=== PATIENT | female | born 1995 | race Caucasian/White ===

== ENCOUNTER 2022-11-04 17:23 | Observation (INO) | payer OTHER, SELFPAY ==
[2022-11-04] VITALS (19 sets, daily range): BP systolic 120–137; BP diastolic 58–88; PULSE 98–214; RESP 16–20; TEMP 36.3–37; O2SAT 94–100
--- NOTE | ~2022-11-04 | US_ITS ---
Renal-Bladder ultrasound Clinical History: Left flank pain Technique: Real-time sonographic imaging of the kidneys and urinary bladder was performed. Findings: The right kidney measures 11.9 cm in length and the left kidney measures 13.3 cm. There is no hydronephrosis or renal calculus identified. Renal cortical echogenicity is within normal limits. No renal mass lesion is identified. The urinary bladder is not visualized. Impression: Unremarkable ultrasound of the kidneys. Reviewed, dictated and finalized at location . Impression: Unremarkable ultrasound of the kidneys.
--- NOTE | 2022-11-04 17:23 | OBADM ---
This patient, Nayeli Victoria, admitted to the OB room [facility] for observation. Patient/family oriented to hospital policies and general routines including ID bracelet, bed and alarms, visiting hours, pain management, procedures, bathroom and other care routines, personal items, smoking policy, room service/diet, and visiting hours. Patient/Family are encouraged to report perceived risks to care and to ask questions if they do not understand what they are told or what they should do.
--- NOTE | 2022-11-04 18:08 | PC.NURSE ---
Dr. Davila informed of this walk in pt at 29 6/7 wks who states she has had care with [facility] and plans to deliver at [facility] in [place]. Pt states she started having pain around 1645 this evening and describes constant pressure pain with intermittent worsening sharp pain in left hip that radiates around to left lower abdomen. Pt is very uncomfortable and moving around in bed / standing at bedside trying to get comfortable. When pt was in bed, I didn't discern any uterine tightening upon palpating during the sharp pains. Pt voided a small amount of urine that visually appears cloudy and concentrated. Just sent a UA, but calling for additional orders now due to pt's discomfort. Orders received for LR, Morphine, Tylenol, CBC, CMP, Rocephine, and renal U/S.
[2022-11-04 18:29] LABS: Bacteria Urine 4+ /hpf; Calcium Oxalate Crystals Urine Present /hpf; RBC Urine >100 /hpf (0-2); Squamous Epithelial Cell Urine Many /hpf (Few); WBC Urine 21-50 /hpf
[2022-11-04 18:35] LABS: Appearance Urine Cloudy (Clear); Bilirubin Urine 1+ (Negative); Blood Urine 3+ (Negative); Color Urine Yellow (Yellow); Glucose Urine UA Negative (Negative); Ketones Urine Trace mg/dL (Negative); Leukocyte Esterase Ur Negative LEU/UL (Negative); Nitrate Urine Negative (Negative); Protein Urine 2+ mg/dL (Negative); Specific Grav Ur >= 1.030 (1.001-1.035); Urobilinogen Urine 0.2 mg/dL (<2.0); pH Urine 5.5 (5.0-9.0)
[2022-11-04 18:38] LABS: Add Urine Microscopic? YES
[2022-11-04] MEDS: MORPHINE SULFATE (*CRX) 2 MG/ML INJ IV PUSH ×2 (18:49→19:44)
[2022-11-04] MEDS: LACTATED RINGERS 1,000 ML 150 ML IV CONT (18:52)
[2022-11-04] MEDS: ACETAMINOPHEN 500 MG TABLET 1000 MG PO (18:53)
--- NOTE | 2022-11-04 19:05 | PC.NURSE ---
Dr. Davila informed of pt's PCN allergy- hives and warning of interaction was given when I started to put in the Rocephin order. Pharmacy says there is about a 10% chance of a crossover allergy to Rocephin. Pt denies ever having Rocephin, Ancef, or Keflex before. Afebrile. U/S department states a renal U/S isn't an indication for calling in a tech from home. informed of UA results and still wants Rocephin given. OK to do renal U/S in am. Pain control orders for through the night received. Informed baby was taken off the monitor and just monitoring for contractions only at present.
[2022-11-04 19:09] LABS: Basophils Absolute Auto 0.1 K/mm3 (0.0-0.1); Basophils Percent Auto 0.3 % (0.2-1.2); Eosinophils Absolute Auto 0.1 K/mm3 (0-0.3); Eosinophils Percent Auto 0.6 % (0-4.4); Hematocrit 37.9 % (37.0-47.0); Hemoglobin 12.7 g/dL (12.0-15.0); Immature Granulocyte Absolute 0.18 K/mm3 (0.00-0.031); Lymphocytes Absolute Auto 2.17 K/mm3 (0.9-3.2); Lymphocytes Percent Auto 12.1 % (18.3-44.2); Mean Corpuscular HGB Conc 33.5 g/dl (32-36); Mean Corpuscular Hemoglobin 30.9 pg (26-34); Mean Corpuscular Volume 92.2 fl (80-100); Monocytes Absolute Auto 1.2 K/mm3 (0.1-0.6); Monocytes Percent Auto 6.5 % (2.6-8.5); Neutrophils Absolute Auto 14.3 K/mm3 (1.3-6.7); Neutrophils Percent Auto 79.5 % (45.5-73.1); Platelet Count Result 287 k/mm3 (150-375); Red Blood Count 4.11 M/mm3 (4.2-5.4); Red Cell Distribution Width 13.7 % (11.5-14.5)
--- NOTE | 2022-11-04 19:10 | PM.IMHP ---
H&P: HPI History of Present Illness Date/Time: 11/04/22 19:10 Chief Complaint: flank pain in Narrative: 27-year-old who presents at 29 weeks with complaint of acute onset left-sided flank pain. Patient states she was riding in the car driving home when she had acute onset pain. Patient states the pain started in her left back and wrapped around her flank. Patient states the pain was a 10/10. Patient denies any fevers, chills, nausea, vomiting. Patient denied any dysuria. She denied any change in color odor to her urine. Patient denied any trauma to the area. Patient has no obstetric concerns. She reports good movement. Review of Systems Review of Systems: All systems reviewed & are unremarkable except as noted in HPI and below Meds Home Medications and Allergies Home Medications Medication Instructions Recorded Confirmed Type vit no.95-ferrous 1 tablet PO DAILY 11/04/22 11/04/22 History fumarate 28 mg-folic acid 800 mcg tablet () Allergies Allergy/AdvReac Type Severity Reaction Status Date / Time Penicillins Allergy Hives Verified 11/04/22 17:55 Sulfa (Sulfonamide Allergy Hives Verified 11/04/22 17:55 Antibiotics) Vital Signs Vital Signs - 24 hr 11/04/22 17:37 11/04/22 17:46 11/04/22 17:47 Pulse Rate 107 H 99 Blood Pressure 137/83 135/71 Pulse Oximetry 96 11/04/22 17:52 11/04/22 17:57 11/04/22 18:02 Pulse Rate Blood Pressure Pulse Oximetry 97 99 99 11/04/22 18:07 11/04/22 18:12 11/04/22 18:17 Pulse Rate Blood Pressure Pulse Oximetry 94 96 95 11/04/22 18:21 11/04/22 18:21 11/04/22 18:21 Pulse Rate Blood Pressure Pulse Oximetry 98 100 96 11/04/22 18:22 11/04/22 18:24 11/04/22 18:26 Pulse Rate Blood Pressure Pulse Oximetry 95 100 97 11/04/22 17:58 Pulse Rate Blood Pressure Pulse Oximetry 99 Exam Const: General: cooperative, no acute distress and well developed; No comfortable Resp: Effort & Inspection: normal respiratory effort and able to speak in complete sentences Auscultation: clear to auscultation bilaterally Cardio: Rate: regular rate Rhythm: regular rhythm GI: Inspection: normal to inspection GI Palp: No abdominal tenderness, Yes Soft to palpation, No Tenderness to palpation present (GI) and No Guarding due to palpation present (GI) : General: Yes no CVA tenderness H&P: Results Labs Labs: Urine 11/04/22 Range/Units 18:04 Urine Color Yellow (Yellow) Urine Appearance Cloudy H (Clear) Urine pH 5.5 (5.0-9.0) Ur Specific [place] >= 1.030 (1.001-1.035) Urine Protein 2+ H (Negative) mg/dL Urine Glucose (UA) Negative (Negative) mg/dL Assessment and Plan Assessment and plan (1) Flank pain in patient: Code(s): O26.899 - Other specified related conditions, unspecified trimester; R10.9 - Unspecified abdominal pain Status: Acute Assessment and Plan: patient presented with acute onset left-sided flank pain Suspect renal calculi versus pyelonephritis patient received IV morphine, will continue morphine p.r.n. for pain control Patient will also receive p.o. Tylenol IV fluid hydration and 150 mL/hour Patient had leukocytosis with a white blood cell count of 18 Urine sent for culture Urine dip showed excessive red blood cells Will schedule renal ultrasound to evaluate for stone (2) Supervision of high risk , unspecified, unspecified trimester: Code(s): O09.90 - Supervision of high risk , unspecified, unspecified trimester Status: Acute Assessment and Plan: Patient receives care at [facility]
[2022-11-04 19:19] LABS: Alanine Aminotransferase 23 U/L (6-35); Alkaline Phosphatase 115 U/L (38-126); Anion Gap 10 mmol/L (8-16); Aspartate Amino Transferase 23 U/L (14-36); Bilirubin,Total 0.4 mg/dL (0.2-1.3); Blood Urea Nitrogen 8 mg/dL (7-17); Calcium 9.7 mg/dL (8.4-10.2); Carbon Dioxide 23 mmol/L (22-30); Chloride 104 mmol/L (98-107); Estimated Glomerular Filt Rate > 60; Glucose 102 mg/dL (65-110); Potassium 3.8 mmol/L (3.4-5.0); Sodium 137 mmol/L (137-145)
[2022-11-04] MEDS: cefTRIAXone 1 GM in DEXTROSE 5% IN WATER 50 ML IVPB (19:26)
[2022-11-04] MEDS: SODIUM CHLORIDE 0.9% IV 1,000 ML 100 ML IV CONT (19:26)
--- NOTE | 2022-11-04 19:34 | PC.NURSE ---
Notified Dr. Davila of all patient lab results. Updated Dr. Davila on maternal assessment including pain level. Patient pain score went from 9/10 to 7/10 following Morphine and tylenol doses. Patient grimacing in bed. Updated pain medication orders received.
[2022-11-04] MEDS: MORPHINE SULFATE (*CRX) 2 MG/ML INJ 4 MG IV PUSH (23:42)
[2022-11-05] VITALS (8 sets, daily range): BP systolic 119–121; BP diastolic 59–72; PULSE 37–102; RESP 16–18; TEMP 36.6; O2SAT 82–95
[2022-11-05] MEDS: LACTATED RINGERS 1,000 ML 150 ML IV CONT (02:37)
[2022-11-05] MEDS: MORPHINE SULFATE (*CRX) 2 MG/ML INJ 4 MG IV PUSH (03:46)
--- NOTE | 2022-11-05 07:29 | PC.NURSE ---
Pt. taken for Renal ultrasound.
--- NOTE | 2022-11-05 07:40 | PC.NURSE ---
Pt. returned to room 117 from ultrasound.
--- NOTE | 2022-11-05 08:56 | PC.NURSE ---
Dr. Davila updated of u/s results. reviewed. Orders for antibiotic change to keflex and probable discharge.
--- NOTE | 2022-11-05 09:40 | PCNEURO ---
Message left for Dr. Davila regarding Keflex Order.
--- NOTE | 2022-11-05 09:46 | PM.OBDSVD ---
DS: Admitting Diagnosis Discharge Date 11/05/22 Admitting Diagnosis left-sided flank pain and DS: Discharge Diagnosis Discharge Diagnosis (1) Flank pain in patient: Code(s): O26.899 - Other specified related conditions, unspecified trimester; R10.9 - Unspecified abdominal pain Status: Acute OB - DS: Summary OB Procedures : None OB Procedures Intrapartum: Other OB Procedures: : None Time Spent with Patient Time attestation: Total time spent providing and/or coordinating discharge services: Exam Const: General: cooperative, no acute distress and well developed; No comfortable Resp: Effort & Inspection: normal respiratory effort and able to speak in complete sentences Auscultation: clear to auscultation bilaterally Cardio: Rate: regular rate Rhythm: regular rhythm GI: Inspection: normal to inspection GI Palp: No abdominal tenderness, Yes Soft to palpation, No Tenderness to palpation present (GI) and No Guarding due to palpation present (GI) : General: Yes no CVA tenderness DS: Data Data Completed and Pending Labs on day of discharge: Labs from last 24 hours 11/04/22 11/04/22 19:04 18:04 WBC 18.0 H RBC 4.11 L Hgb 12.7 Hct 37.9 MCV 92.2 MCH 30.9 MCHC 33.5 RDW 13.7 Plt Count 287 MPV 11.0 H Immature Gran % (Auto) 1.0 H Neut % (Auto) 79.5 H Lymph % (Auto) 12.1 L [place] % (Auto) 6.5 Eos % (Auto) 0.6 Baso % (Auto) 0.3 Lymph # (Auto) 2.17 [place] # (Auto) 1.2 H Eos # (Auto) 0.1 Baso # (Auto) 0.1 Abs Immat Gran (auto) 0.18 H Absolute Neuts (auto) 14.3 H Absolute Nucleated RBC 0.0 Nucleated RBC % 0.0 Sodium 137 Potassium 3.8 Chloride 104 Carbon Dioxide 23 Anion Gap 10 BUN 8 Creatinine 0.70 Estim Creat Clear Calc Not Reportable Estimated GFR > 60 Glucose 102 Calcium 9.7 Total Bilirubin 0.4 AST 23 ALT 23 Alkaline Phosphatase 115 Total Protein 7.0 Albumin 4.0 Urine Color Yellow Urine Appearance Cloudy H Urine pH 5.5 Ur Specific [place] >= 1.030 Urine Protein 2+ H Urine Glucose (UA) Negative Urine Ketones Trace H Ur Blood (Man) 3+ H Urine Nitrate Negative Urine Bilirubin 1+ H Urine Urobilinogen 0.2 Leukocyte Esterase Rfl Negative Urine RBC >100 H Urine WBC 21-50 H Ur Squamous Epith Cells Many H Calcium Oxalate Crystal Present Urine Bacteria 4+ H Urine Casts 3-5 Discharge Plan Discharge Discharging Clinician: Guillermo Davila Patient Disposition: Home, Self-Care Activity: pelvic rest Diet: regular Patient Instructions: Antibiotic Form Stand Alone Forms: General Discharge Information Follow-up/Referrals: Guillermo Davila MD [Physician] - Discharge Medications: New cephalexin 500 mg capsule 500 mg PO Q8H 14 Days Qty: 42 0RF Continued PNV cmb#95-ferrous fumarate-FA [] 28 mg iron- 800 mcg Tablet 1 tablet PO DAILY Date of admission: 11/04/22 17:23 Primary Care 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
== END 2022-11-05 10:15 | disposition home or self-care (01) ==
PROVIDERS: Admitting Provider Student in an Organized Health Care Education/Training Program; Visit Provider Student in an Organized Health Care Education/Training Program
DX: O26.893 Other specified pregnancy related conditions, third trimester (principal); R10.9 Unspecified abdominal pain; Z3A.29 29 weeks gestation of pregnancy; Z79.899 Other long term (current) drug therapy
CPT/HCPCS: 36415; 76775; 80053; 81001; 85025; 87086; 87088; 96361; 96365; 96374; 96375; 96376; A9270; G0378; G0379; J0696; J2270; J7030; J7120